=== PATIENT | female | born 1935 | race Caucasian/White ===

== ENCOUNTER 2017-11-02 12:49 | Emergency (ER) | payer OTHER, MEDICARE ==
[2017-11-02 13:01] VITALS: BP 131/51; PULSE 64; TEMP 97.6; BMI 24.1
--- NOTE | 2017-11-02 13:32 | PDOC ---
History of Present Illness - General Chief Complaint: Injury Stated Complaint: LEFT ANKLE PAIN Time Seen by Provider: 11/02/17 13:12 History Source: Patient, Spouse Exam Limitations: No Limitations - History of Present Illness Initial Comments: 11/02/17 13:28 CHIEF COMPLAINT: Left ankle pain HISTORY OF PRESENT ILLNESS: 82-year-old female with a history of hypertension and hyperlipidemia presents to the ED via ambulance for left ankle pain. She states she was on the steps at home just prior to arrival when she missed a step and twisted her left ankle. There were no symptoms of dizziness, unsteadiness, chest pain, shortness of breath, palpitations, or weakness. This was a simple mechanical fall. The patient was unable to bear weight on the ankle, so EMS was called. She has a history of prior left hip arthritis for which she takes ibuprofen. There is no pain to the left hip, knee, or leg other than in the region of the left lateral ankle. REVIEW OF SYSTEMS: No fever or chills No cough or sore throat No chest pain or shortness of breath No abdominal pain or nausea No vomiting or diarrhea No dysuria or frequency Positive left ankle pain, acute since the event just prior to arrival Positive chronic mild left hip pain, taking ibuprofen for arthritis No head injury or neck injury Past History - Past Medical History Allergies/Adverse Reactions: Allergies Allergy/AdvReac Type Severity Reaction Status Date / Time Sulfa (Sulfonamide Allergy Verified 11/02/17 12:50 Antibiotics) [Sulfa(Sulfonamide Antibiotics)] Home Medications: Ambulatory Orders Rosuvastatin Calcium [Crestor] 10 mg PO DAILY 07/15/12 Aspirin [ASA -] 81 mg PO DAILY 04/17/13 Hydrochlorothiazide 25 mg PO DAILY 03/03/15 Valsartan [Diovan] 160 mg PO DAILY 03/03/15 Cholecalciferol (Vitamin D3) [Vitamin D3 -] 1,000 unit PO DAILY 04/26/16 Cyanocobalamin [Vitamin B12 -] 1,200 mcg PO DAILY 11/02/17 Donepezil HCl 10 mg PO HS 11/02/17 Ibuprofen [Motrin -] 400 mg PO Q6H PRN 11/02/17 Meloxicam [Mobic] 15 mg PO DAILY 11/02/17 COPD: No HTN: Yes Hypercholesterolemia: Yes - Suicide/Smoking/Psychosocial Hx Smoking Status: No Smoking History: Never smoked Number of Cigarettes Smoked Daily: 0 Hx Alcohol Use: ("fridays") Drug/Substance Use Hx: No Substance Use Type: None *Physical Exam - Vital Signs Last Vital Signs Temp Pulse Resp BP Pulse Ox 97.6 F 64 18 131/51 100 11/02/17 12:50 11/02/17 12:50 11/02/17 12:50 11/02/17 12:50 11/02/17 12:50 - Physical Exam Comments: 11/02/17 13:30 GENERAL: The patient is awake, alert, and fully oriented, in no acute distress. HEAD: Normal with no signs of trauma. EYES: Pupils equal, round and reactive to light, extraocular movements intact, sclera anicteric, conjunctiva clear. EXTREMITIES: The left leg is normal at the hip, thigh, knee, and lower leg above the ankle. The left ankle is notable for tenderness over the lateral malleolus, but no crepitus. There is mild swelling to the left lateral malleolus. Pulses are 2+ to the dorsalis pedis, capillary refill to the toes is less than 2 seconds. Sensation is intact throughout the left ankle and foot. NEUROLOGICAL: Normal speech, normal strength throughout all extremities with the only limitation being left ankle pain. Unable to ambulate due to left ankle pain. PSYCH: Normal mood, normal affect. SKIN: Warm, Dry, normal turgor, no rashes or lesions noted. No skin abrasions or lacerations. ED Treatment Course - RADIOLOGY Radiology Studies Ordered: Category Date Time Status ANKLE-LEFT [RAD] Stat Radiology 11/02/17 13:27 Ordered Medical Decision Making - Medical Decision Making 11/02/17 14:43 82-year-old female had a mechanical misstep with twisting of her left ankle and foot one hour prior to admission. She complains of pain in the lateral aspect of the left ankle but denies foot pain. On examination there was tenderness of the lateral malleolus but no major tenderness to the foot. There is no change in the skin, and circulation is normal. X-rays of the left ankle show a tiny a bulge in, probably old from the distal fibula. The ankle x-ray showed questionable fracture of the left fifth metatarsal. Dedicated x-rays of the left foot demonstrate a fracture of the shaft of the left fifth metatarsal. Jose wrap applied, stiff soled shoe applied to the left foot, Walker prescribed for assistance with ambulation. Patient is already under the care of an orthopedic explosive specialist. She will follow-up with her physician this week. 11/02/17 15:00 Patient was given a walker in the emergency department and is ambulating with the walker, foot is in the postop shoe. *DC/Admit/Observation/Transfer Diagnosis at time of Disposition: Left ankle sprain Qualifiers: Encounter type: initial encounter Involved ligament of ankle: unspecified ligament Qualified Code(s): S93.402A - Sprain of unspecified ligament of left ankle, initial encounter Closed nondisplaced fracture of fifth left metatarsal bone Qualifiers: Encounter type: initial encounter Qualified Code(s): S92.355A - Nondisplaced fracture of fifth metatarsal bone, left foot, initial encounter for closed fracture - Discharge Dispostion Disposition: HOME Condition at time of disposition: Stable Admit: No - Referrals Referrals: Farideh Barragan [Primary Care Provider] - - Patient Instructions Printed Discharge Instructions: DI for Foot Fracture Additional Instructions: Mrs. Ortega, you were evaluated today for a left ankle sprain and a left foot fracture in the fifth metatarsal bone. You're advised to rest, elevate the foot , apply ice packs for 20 minutes every few hours today and tomorrow. You may take Tylenol or ibuprofen as needed for pain. Use the walker to help you get around at home. Follow-up with your orthopedic foot doctor this coming week. Follow-up with your primary care physician as well. Return to the emergency department for any severe or progressive symptoms. - Post Discharge Activity
== END 2017-11-02 15:10 | disposition home or self-care (01) ==
LOC: FER 12:49
DX: S93.402A Sprain of unspecified ligament of left ankle, initial encounter (principal); X58.XXXA Exposure to other specified factors, initial encounter; Y93.89 Activity, other specified; Y92.9 Unspecified place or not applicable; I10 Essential (primary) hypertension; E78.5 Hyperlipidemia, unspecified
CPT/HCPCS: 73610-TC-LT-FY; 73630-TC-LT; 99283-25

== ENCOUNTER 2020-09-26 11:08 | Emergency (ER) | payer OTHER, MEDICARE | END 2020-09-26 11:38 | disposition home or self-care (01) | LOC: JVIRT 11:08 | DX: U07.1 COVID-19 (principal) | CPT/HCPCS: C9803; G2251-GT; U0003 ==